=== PATIENT | female | born 1955 | race African-American/Black ===

== ENCOUNTER 2021-04-23 14:46 | Emergency (ER) | payer OTHER ==
[~2021-04-23] VITALS: Ht 165.1 cm; Wt 48.0 kg
[2021-04-23 15:26] LABS: HEMATOCRIT. 32.3 % (36.0-48.0); HEMOGLOBIN. 11.1 g/dL (12.0-16.0); MEAN CORPUSCULAR HEMOGLOBIN 31.2 pg (28.0-32.0); MEAN CORPUSCULAR VOLUME 90.8 fL (81.0-99.0); MEAN PLATELET VOLUME 9.6 fl (7.4-10.4); PLATELET 147 x1000/uL (130-400); RED BLOOD CELL COUNT 3.56 mill/uL (4.2-5.4); RED CELL DISTRIBUTION WIDTH 17.1 % (11.6-14.6)
[2021-04-23 15:32] LABS: CHLORIDE 96 mEq/L (98-107)
[2021-04-23 15:34] LABS: INR 1.1; PROTHROMBIN TIME 11.4 sec (9.6-11.0)
[2021-04-23 15:50] LABS: PLATELET ESTIMATE NORMAL
[2021-04-23] MEDS ORDERED: CEFTRIAXONE 1 G PREMIX 50 ML IV ONE (16:15)
[2021-04-23 16:51] LABS: BG BASE EXCESS 7.7 mmol/L (-2.0-2.0); BG CARBOXYHEMOGLOBIN 1.6 % (0.5-1.5); BG DEOXYHEMOGLOBIN 28.6 % (0.0-5.0); BG FRACTION INSPIRED OXYGEN 21; BG METHEMOGLOBIN 0.1 % (0.0-1.5); BG OXYGEN SATURATION 70.9 % (92.0-98.5); BG OXYHEMOGLOBIN 69.7 % (94.0-97.0); BG PCO2 44.2 mmHg (35.0-45.0); BG PH 7.478 (7.350-7.450); BG PO2 34.3 mmHg (75.0-100.0); BG SAMPLE SITE LEFT BRACHIAL; BG TOTAL HEMOGLOBIN 11.3 g/dL (12.0-18.0); BG VENT MODE ROOM AIR
[2021-04-23] MEDS ORDERED: DOXYCYCLINE HYCLATE 100 MG/VIAL IV ONE (23:30)
[2021-04-24] MEDS ORDERED: DOXYCYCLINE 100MG in DEXTROSE 5% WATER 100ML IV NR
[2021-04-24 03:56] VITALS: BP 165/77
== END 2021-04-24 03:45 | disposition short-term general hospital (02) ==
LOC: ER 14:46
DX: A41.9 Sepsis, unspecified organism (principal); R65.20 Severe sepsis without septic shock; J18.9 Pneumonia, unspecified organism; R77.8 Other specified abnormalities of plasma proteins; G93.41 Metabolic encephalopathy; E83.52 Hypercalcemia; Z20.822 Contact with and (suspected) exposure to COVID-19; I10 Essential (primary) hypertension; E11.9 Type 2 diabetes mellitus without complications; Z98.890 Other specified postprocedural states
CPT/HCPCS: 36415; 36600; 71045; 80053; 82375; 82805; 83605; 83880; 84484; 85025; 85610; 87040; 93005; 96361; 96374; 99291; C9803; J0696; J3490; J7060; U0003; U0005; 99285